=== PATIENT | male | born 1935 | race Caucasian/White ===

== ENCOUNTER 2020-05-08 12:05 | Outpatient (CLI) | payer OTHER, SELFPAY ==
--- NOTE | 2020-05-08 12:13 | USCV_ITS ---
KaydenJaime Age: 84 Gender: M : 1935 Exam Date: 05/08/2020 12:25 Ordering Phys: Shweta Ohara MD Technologist: Mary Dillon Exam Location: [facility] [place] Indication: PAD Risk Factors: Unknown Previous Vascular Surgery: None RIGHT LEFT BP: 150.0 / 81.00 BP: 161.0/ 82.00 0 0 Waveform Velocity (cm/s) Velocity (cm/s) Waveform Triphasic 126.3 Iliac Prox 159.3 Biphasic Triphasic 163.7 Iliac Mid 148.7 Biphasic Triphasic 164.7 Iliac Distal 156.2 Biphasic Triphasic 172.5 REHAB AID 145.5 Monophasic Monophasic 70.9 SFA Prox 63.4 Monophasic Monophasic 22.3 SFA Mid 89.4 Monophasic Monophasic 45.6 SFA Dist 98.6 Monophasic Monophasic 47.7 POP 66.3 Monophasic Monophasic 44.6 SUPERVISOR FILLING AND PACKING 58.6 Monophasic Monophasic 13.6 DPA 35.2 Monophasic DEIDRA 0.8 FINDINGS RT SUPERVISOR FILLING [employer] PACKING 142 RT DPA >220 LT SUPERVISOR FILLING [employer] PACKING 130 LT DPA 100 CONCLUSIONS Supernormal resting DEIDRA on the right side with slightly diminished resting DEIDRA on the left side Abnormal arterial Doppler waveforms, may suggest collateral filling in the infrapopliteal vessels bilaterally Abnormal arterial Doppler waveforms and velocities suggestive of significant disease in the superficial femoral arteries bilaterally. Consider CTA or peripheral angiogram, to better evaluate the arteries, if clinically indicated Dr Marlen Wren MD [facility] (Electronically Signed) Final Date: 08 May 2020 20:21 S
== END 2020-05-08 12:06 | disposition home or self-care (01) ==
LOC: RAD 12:07
PROVIDERS: PCP Internal Medicine; Visit Provider Family Medicine
DX: I73.9 Peripheral vascular disease, unspecified (principal)
CPT/HCPCS: 93925

== ENCOUNTER → 2020-05-26 11:46 | Outpatient (BNVA) | payer OTHER, SELFPAY | PROVIDERS: PCP Internal Medicine; Visit Provider Nurse Practitioner Family | DX: Z20.828 Contact with and (suspected) exposure to other viral communicable diseases (principal) | CPT/HCPCS: 87635 ==

== ENCOUNTER 2021-01-06 11:17 | Emergency (ER) | payer OTHER, SELFPAY ==
[2021-01-06 12:03] VITALS: BP 125/70; PULSE 77; RESP 20; TEMP 36.7; O2SAT 96; BMI 36.6
[2021-01-06 13:31] LABS: Add Urine Microscopic? NO; Charge for UA Resulting for Rev
[2021-01-06 13:35] VITALS: BP 105/66; BP 140/61; BP 151/80; PULSE 71; PULSE 76; PULSE 80
[2021-01-06 13:38] VITALS: BP 140/61; PULSE 80; O2SAT 98
[2021-01-06 13:38] LABS: Bilirubin Urine Neg (Negative); Blood Urine Neg (Negative); Glucose Urine UA Norm (Normal); Ketones Urine Negative (Negative); Leukocyte Esterase Urine Negative (Negative); Nitrate Urine Negative (Negative); Protein Urine Trace (Negative); Specific Gravity, Urine 1.015 (1.005-1.030); Urine Appearance Clear (CLEAR); Urine Color Yellow (Yellow); Urobilinogen Urine Norm (Negative); pH Urine 5 (5-7)
[2021-01-06 13:54] LABS: Basophils % 0.4 %; Eosinophils # 0.1 10^3/uL (0.0-0.8); Eosinophils % 1.5 %; Hematocrit 36.8 % (42.0-52.0); Hemoglobin 12.2 g/dL (11.7-16.6); Lymphocytes # 1.9 10^3/uL (0.8-4.8); Lymphocytes % 19.8 %; Mean Corpuscular HGB Conc 33.2 g/dL (30.0-36.0); Mean Corpuscular Hemoglobin 31.2 pg (28.0-34.0); Mean Corpuscular Volume 94.1 fL (80-94); Mean Platelet Volume 10.6 fL (7.4-10.4); Monocytes # 0.8 10^3/uL (0.2-0.9); Monocytes % 8.8 %; Neutrophils # 6.47 10^3/uL (1.8-7.7); Nucleated Red Blood Cells % 0 %; Platelet Count 324 10^3/cmm (130-400); Red Blood Count 3.91 10^6/uL (4.1-5.3); Red Cell Distribution Width 13.1 % (12.1-15.1); White Blood Count 9.4 10^3/uL (4.0-10.0)
[2021-01-06 14:18] LABS: Alanine Aminotransferase 10 U/L (0-41); Albumin Level 4.1 g/dL (3.5-5.2); Alkaline Phosphatase 75 IU/L (40-130); Aspartate Amino Transferase 13 U/L (0-40); Blood Urea Nitrogen 56 mg/dL (8-23); Carbon Dioxide 27 mmol/L (22-29); Chloride 98 mmol/L (98-107); Globulin 2.6 g/dL (1.3-4.6); Glucose 157 mg/dL (65-115); Osmolality Calculated 303 mOsm/kg (285-295); Sodium 137 mmol/L (136-145); Total Bilirubin 0.3 mg/dL (0.15-1.2); Total Protein 6.7 g/dL (6.6-8.7)
--- NOTE | 2021-01-06 14:30 | W.ED.DIZZY ---
HPI - Dizziness General: Chief Complaint: Dizziness Stated Complaint: abdominal pain, headache, dizzy Time Seen by Provider: 01/06/21 13:06 History of Present Illness: HPI Narrative: 85-year-old male presents emergency room complaining of dizziness headache and some abdominal discomfort. Pain in the head radiates from the base of the neck up into the head. Is caused some dizziness and unsteadiness on his feet it began about 3 to 4 days ago. He is also had nausea and vomiting with mild vision disturbances as well. He does not notice any significant elevation in his blood pressure denies fever sweats chills no chest pain. MD elicited complaint: dizziness, lightheadedness and difficulty walking Onset (ago): day(s) (4-5) Severity: moderate Description: lightheadedness, off-balance and difficulty walking Exacerbating factors: nothing Relieving factors: nothing Associated symptoms: Denies no associated symptoms, change in hearing, chest pain, chills, diaphoresis, ear discharge, ear pressure, fevers/chills, headache(s), malaise, nausea, nasal congestion, palpitations, rash, short of breath, syncope, tinnitus, vomiting or weakness Associated neuro symptoms: Deny no associated symptoms, confusion, difficulty speaking, dysphagia, diplopia, extremity weakness, facial numbness, facial weakness, gait changes, numbness in extremities or visual changes Review of Systems Const: Denies: chills, malaise or diaphoresis ENMT: Denies: ear discharge, change in hearing, tinnitus or nasal congestion Card: Denies: chest pain, palpitations or syncope Resp: Denies: dyspnea, productive cough or non-productive cough GI: Denies: nausea, vomiting or dysphagia : Denies: flank pain, dysuria, urinary frequency or urinary urgency Skin/Breast: Denies: rash or pruritus Neuro: Denies: headache(s), numbness in extremities or confusion Physical Exam Const: COMMON NORMALS: no acute distress GENERAL APPEARANCE: cooperative and comfortable ORIENTATION/CONSCIOUSNESS: Yes awake, Yes oriented to person, Yes oriented to place and Yes oriented to time HENMT: COMMON NORMALS: normocephalic, atraumatic and hearing grossly normal bilaterally HEAD & SCALP: normocephalic and atraumatic Neck/C-Spine: COMMON NORMALS: no JVD Resp: COMMON NORMALS: normal respiratory effort, No retractions, No use of accessory muscles and clear to auscultation bilaterally AUSCULTATION: clear to auscultation bilaterally Cardio: COMMON NORMALS: no JVD, regular rate, regular rhythm and No murmurs present (Cardio) RATE: regular rate RHYTHM: regular rhythm GI: COMMON NORMALS: Soft to palpation and No hepatosplenomegaly present AUSCULTATION: Yes normoactive bowel sounds PALPATION: Yes Soft to palpation, No Tenderness to palpation present (GI), No Guarding due to palpation present (GI) and Yes No hepatosplenomegaly present Extremity: COMMON NORMALS: normal to inspection, capillary refill normal, no clubbing, cyanosis or edema, no calf tenderness and no pedal edema Neuro: SENSORIUM/ORIENTATION: Yes oriented to person, Yes oriented to place and Yes oriented to time Skin: COMMON NORMALS: no rashes or lesions noted GENERAL SKIN EXAM: no rashes or lesions noted Course Vital Signs: Vital signs: Vital Signs Temperature 98.1 F 01/06/21 12:03 Pulse Rate 78 01/06/21 17:53 Respiratory Rate 16 01/06/21 17:53 Blood Pressure 140/61 01/06/21 13:38 Pulse Oximetry 98 01/06/21 17:53 MDM - Dizziness MDM Narrative: Medical decision making narrative: Reviewed labs finding the patient. I think for the most part his symptoms are caused by him being volume depleted he is on spironolactone Lasix and hydrochlorothiazide. We will switch him to plain losartan decrease his Lasix to 40 twice daily and cut his spironolactone in half. Given fluids here he does seem to be feeling somewhat better I did strongly encourage him to follow-up with his doctor within the next week to have his medications and blood pressure reevaluated as well as have a renal function and electrolytes rechecked. Lab Data: Labs: Lab Results 01/06/21 01/06/21 01/06/21 Range/Units 13:22 13:49 13:49 WBC 9.4 (4.0-10.0) 10^3/ uL RBC 3.91 L (4.1-5.3) 10^6/u L Hgb 12.2 (11.7-16.6) g/dL Hct 36.8 L (42.0-52.0) % MCV 94.1 H (80-94) fL MCH 31.2 (28.0-34.0) pg MCHC 33.2 (30.0-36.0) g/dL RDW 13.1 (12.1-15.1) % Plt Count 324 (130-400) 10^3/c mm MPV 10.6 H (7.4-10.4) fL Neut % (Auto) 69.0 % Lymph % (Auto) 19.8 % Duval % (Auto) 8.8 % Eos % (Auto) 1.5 % Baso % (Auto) 0.4 % Neut # (Auto) 6.47 (1.8-7.7) 10^3/u L Lymph # (Auto) 1.9 (0.8-4.8) 10^3/u L Duval # (Auto) 0.8 (0.2-0.9) 10^3/u L Eos # (Auto) 0.1 (0.0-0.8) 10^3/u L Baso # (Auto) 0.0 (0.0-0.1) 10^3/u L Nucleated RBC % (a uto) 0 % Nucleated RBCs # 0.0 /100WBC Sodium 137 (136-145) mmol/L Potassium 5.0 (3.5-5.1) mmol/L Chloride 98 (98-107) mmol/L Carbon Dioxide 27 (22-29) mmol/L Anion Gap 17.0 (5-19) BUN 56 H (8-23) mg/dL Creatinine 2.2 H (0.7-1.2) mg/dL GFR Calculation Not Reportable Glucose 157 H (65-115) mg/dL Calculated Osmolal ity 303 H (285-295) mOsm/k g Calcium 9.0 (8.5-10.5) mg/dL Total Bilirubin 0.3 (0.15-1.2) mg/dL AST 13 (0-40) U/L ALT 10 (0-41) U/L Alkaline Phosphata se 75 (40-130) IU/L Total Protein 6.7 (6.6-8.7) g/dL Albumin 4.1 (3.5-5.2) g/dL Globulin 2.6 (1.3-4.6) g/dL Urine Color Yellow (Yellow) Urine Appearance Clear (CLEAR) Urine pH 5 (5-7) Ur Specific Gravit y 1.015 (1.005-1.030) Urine Protein Trace (Negative) Urine Glucose (UA) Norm (Normal) Urine Ketones Negative (Negative) Urine Blood Neg (Negative) Urine Nitrate Negative (Negative) Urine Bilirubin Neg (Negative) Urine Urobilinogen Norm (Negative) mg/dL Ur Leukocyte Yanira ase Negative (Negative) Discharge Plan Discharge Patient Disposition: Home Clinical Impression: Orthostatic hypotension, Drug side effects, KERRIE (acute kidney injury) Condition: Stable Prescriptions: New losartan 50 mg tablet 50 mg PO DAILY Qty: 30 RF: 0 Continued furosemide 40 mg Tablet See Rx Instructions .ROUTE .COMPLEX RF: 0 Changed spironolactone 25 mg Tablet 12.5 mg PO DAILY Qty: 0 RF: 0 Discontinued losartan-hydrochlorothiazide 50-12.5 mg Tablet 1 tab PO DAILY RF: 0 No Action Lantus U-100 Insulin 100 unit/mL Solution 70 unit SUBCUT DAILY RF: 0 pravastatin 40 mg Tablet 40 mg PO DAILY RF: 0 diltiazem HCl 240 mg Capsule,Extended Release 24hr 240 mg PO DAILY RF: 0 Novolog Mix 70-30 U-100 Insuln 100 unit/mL (70-30) Solution 12 unit SUBCUT BID RF: 0 aspirin 325 mg Tablet 325 mg PO DAILY RF: 0 Discharge Orders: Discharge ED (Routine); Ordered 01/06/21 Ordered By: Jose Ramon Hopkins Referrals: Dann Green [Primary Care Provider] - Discharge Diet: Usual diet Discharge Activity: Increase activity as tolerated Patient Instructions: Opioid Safety Coding Level of Care Code ED Marketing Effectiveness Manager for Susi Fwd Exam Comprehensive
--- NOTE | 2021-01-06 14:35 | CT_ITS ---
WS: [id number] CT HEAD NONCONTRAST HISTORY: headache TECHNIQUE: Contiguous axial imaging performed through the brain in 2.5 mm imaging. Bone and soft tiss ue windows. Sagittal and coronal reformats reviewed. All CT scans at [facility] use at ast one of these dose optimization techniques: automated exposure control; mA and/or kV adjustment pe r patient size (includes targeted exams where dose is matched to clinical indication); or iterative r econstruction. DLP: 970.61 mGy.cm COMPARISON: 04/13/2011 No acute intracranial hemorrhage, midline shift or mass effect. Moderate to severe and chronic ischemic changes. There is been a moderate progression of disease sinc e the prior examination. No acute area of sulcal effacement. Mild atrophy. Ventricles: Ventricles are mildly prominent on the basis of atrophy. No inferior displacement of cerebellar tonsils. Paranasal sinuses: As visualized are clear. Mastoid air cells: Well pneumatized. Calvarium and scalp: Skull is intact with no soft tissue edema or swelling. Dense calcified plaque in the distal LEFT vertebral artery and through the intracranial carotid arter ies. CT/CT head wo con* [id number] IMPRESSION: 1. No acute intracranial hemorrhage or edema. 2. Moderate progression of atrophy and chronic microvascular ischemic disease since 2010.
--- NOTE | 2021-01-06 14:35 | CT_ITS ---
WS: [id number] CT ABDOMEN AND PELVIS NONCONTRAST HISTORY: Abdominal pain for several days. TECHNIQUE: Imaging performed through the abdomen and pelvis. Coronal and sagittal reformats are submi tted. All CT scans at [facility] use at least one of these dose optimization techniques: automated exposure control; mA and/or kV adjustment per patient size (includes targeted exams where d ose is matched to clinical indication); or iterative reconstruction. DLP: 1582.24 mGy.cm COMPARISON: None available. Lower thorax: Lung bases are clear. Visualized heart is normal. Small hiatal hernia. Liver: Hepatic steatosis. No bile duct dilatation. Gallbladder: Normally distended gallbladder. Layering stones within the gallbladder lumen. No adjacen t inflammation or bile duct dilatation. Pancreas: Mild atrophy. Spleen: Normal. Adrenal glands: Normal. No mass. Right kidney: No obstruction. Mild perinephric stranding. Very slight lobulation to the renal cortex measuring 7 mm. Cannot exclude mass. Left kidney: Normal size kidney. Lobulated low-attenuation mass from the superior pole measures 2.0 c m. Indeterminate for cyst. Aorta: Moderate to severe atherosclerosis abdominal aorta. No aneurysm. Atherosclerosis continues int o the common iliac arteries. No free fluid, intraperitoneal air or significant lymphadenopathy. GI tract: Normal appendix. No GI tract obstruction. Numerous diverticula in the descending and sigmoi d colon. No acute inflammatory process. Abdominal wall: Small umbilical hernia contains fat only. Pelvis: Well-distended urinary bladder. Prostate gland is mildly enlarged. No free fluid or adenopath y. Osseous structures: Unremarkable. CT/CT abdomen pelvis wo con [id number] IMPRESSION: 1. Cholelithiasis without evidence for acute cholecystitis. 2. Normal appendix. 3. Numerous descending and sigmoid diverticula without acute diverticulitis. 4. Hiatal hernia. 5. Moderate atherosclerosis aorta and common iliac arteries.
[2021-01-06] MEDS: sodium chloride 0.9% 1,000 ML 999 ML IV (17:31)
[2021-01-06 17:53] VITALS: PULSE 78; RESP 16; O2SAT 98
== END 2021-01-06 17:57 | disposition home or self-care (01) ==
PROVIDERS: Emergency Provider Family Medicine; PCP Internal Medicine
DX: I95.2 Hypotension due to drugs (principal); N17.9 Acute kidney failure, unspecified; T50.0X5A Adverse effect of mineralocorticoids and their antagonists, initial encounter; T50.1X5A Adverse effect of loop [high-ceiling] diuretics, initial encounter; T50.2X5A Adverse effect of carbonic-anhydrase inhibitors, benzothiadiazides and other diuretics, initial encounter
CPT/HCPCS: 70450; 74176; 80053; 81003; 85025; 96360; 99284; J7030

== ENCOUNTER 2021-07-13 07:16 | Outpatient (CLI) | payer OTHER, SELFPAY ==
[2021-07-13 07:52] VITALS: BMI 36.6
--- NOTE | 2021-07-13 07:52 | ECG_ITS ---
[facility] Test Date: 2021-07-13 Pat Name: Jaime Monique Department: Room: Gender: Male Computer Service Technician: Violeta Kennedy : 1935 Requested By: Peter Daniel Order Number: [id number] Catalino MD: Kat Prince M.D. Interpretive Statements NAME OF STUDY: LEXISCAN SESTAMIBI STRESS TEST INDICATION: Dyspnea PROCEDURE: At the baseline, the blood pressure was 160/65 mmHg, oxygen saturation 96% with a heart rate of 90 bpm. The electrocardiogram showed normal sinus rhythm, normal axis with nonspecific ST depression. The Lexiscan was infused over a period of 20 seconds. A total of 0.4 milligrams of Lexiscan was infused. The stress phase was continued for a total of 5 minutes. Heart rate at the end of the stress phase was 112 bpm, oxygen saturation 98% with a blood pressure of 180/67 mmHg. The EKG at the peak infusion revealed sinus tachycardia [address] depression in anterolateral leads. The study was terminated to protocol completion. Sestamibi was injected 20 seconds after the Lexiscan infusion. Blood pressure at the end of the recovery phase was 176/63 mmHg, oxygen saturation 97% with a heart rate of 101 beats per minute. CONCLUSION: 1. Positive EKG response to LexiScan infusion. [address] depression in anterolateral leads. 2. No LexiScan induced chest pain or cardiac arrhythmia. 3. Normal blood pressure and heart rate response. 4. Sestamibi/sestamibi perfusion scan pending; see separate report. Electronically Signed On 07-14-2021 17:59:10 TRAIN MASTER by Kat Prince M.D. [email or web address]
--- NOTE | 2021-07-13 07:53 | NMCV_ITS ---
NM semaj perf SPECT r/s* [id number] Jaime Monique Age: 86 Gender: M : 1935 Exam Date: 07/13/2021 07:53 Ordering Phys: Peter Daniel M.D ([email or web address]) Technologist: ALEA Babb Exam Location: [facility] Indications: DYSPNEA STRESS TEST Please see separate stress test report in [facility] for full findings IMAGE PROTOCOL Rest/Stress 1 Lexiscan Day Radiopharmaceutical Dose (mCi) Administration Site Administered by Rest: Tc-99m 11.0 IV ALEA Babb Sestamibi Stress:Tc-99m 33.0 IV ALEA Reveles Sestamibi Rest: 13-Jul-2021 60 Discovery 630 Stress: 13-Jul-2021 30 Discovery 630 0.4mg Lexiscan. Supine position only as patient was unable to lay prone. SPECT RESULTS Technical Quality: Excellent Raw Data Analysis: Normal Image Corrections: No attenuation or motion correction applied Summed Stress Score: 5 Summed Rest Score: 0 Summed Difference Score: 5 PERFUSION FINDINGS Small size perfusion abnormality of mild severity of mid to apical lateral and apical inferior rubio on stress images. FUNCTIONAL RESULTS (calculated via Gated SPECT) Stress Image LV EF (%): 65 Stress EDV (mL):94 TID: 0.91 Stress ESV (mL):33 FUNCTIONAL FINDINGS: The left ventricle is normal in size. Transient Ischemia Dilatation of 0.91. There is normal left ventricular systolic function. The left ventricular ejection fraction is normal with a value of 65%. There is normal left ventricular wall thickening. Normal end-diastolic end-systolic volumes. IMPRESSIONS 1. Small sized reversible perfusion abnormality of mild severity of mid to apical lateral and apical inferior rubio. 2. This may represent small area of ischemia in circumflex artery territory. 3. Overall left ventricular systolic function is normal without regional wall motion abnormalities. 4. The left ventricular ejection fraction is normal with a value of 65%. 5. Positive EKG changes with Lexiscan infusion. Please refer to separate report for details. Kat Prince MD (Electronically Signed) Final Date: 14 July 2021 18:07 S
[2021-07-13] MEDS: regadenoson 0.4 Mg/5 ml Syringe IVP (09:59)
[2021-07-13 10:14] VITALS: BP 176/63; PULSE 99
--- NOTE | 2021-07-13 10:15 | USCV_ITS ---
[facility] 86 Gender: M : 1935 Exam Date: 07/13/2021 08:04 Ordering Phys: Peter Daniel M.D ([email or web address]) Technologist: FAINA Exam Location: [facility] [place] Indication: CHRONIC dyspnea BP: / HR: 83 Rhythm: Sinus Technical Quality: Adequate MEASUREMENTS (Male / Female) Normal Values 2D ECHO LV Diastolic Diameter PLAX 4.3 cm 4.2 - 5.9 / 3.9 - 5.3 cm LV Systolic Diameter PLAX 2.7 cm IVS Diastolic Thickness 1.7 cm 0.6 - 1.0 / 0.6 - 0.9 cm IVS Systolic Thickness 2.1 cm LVPW Diastolic Thickness 1.4 cm 0.6 - 1.0 / 0.6 - 0.9 cm LVPW Systolic Thickness 2.2 cm LVOT Diameter 2.2 cm LV Ejection Fraction 2D Teich 67.6 % LV Ejection Fraction MOD 2C 64.2 % LV Ejection Fraction 2C AL 63.4 % LA Diameter 4.4 cm LA Width 5.2 cm LA Height 5.5 cm RA Width 4.4 cm RA Height 3.5 cm Aorta at Sinotubular Diameter 3.0 cm M-MODE Aortic Annulus Diameter 3.1 cm LA Ao Ratio MM 1.5 MV E Point Septal Separation 0.3 cm DOPPLER AV Peak Velocity 110.0 cm/s LVOT Peak Velocity 86.0 cm/s AV Area Cont Eq vti 2.7 cm squared AV Area Cont Eq pk 2.9 cm squared MV Area PHT 4.2 cm squared Mitral E to A Ratio 0.8 MV E' Velocity 65.0 cm/s Mitral E to MV E' Ratio 12.8 Mitral E to LV E' Lateral Ratio 12.4 Mitral E to LV E' Septal Ratio 13.2 TR Peak Velocity 268.0 cm/s TR Peak Gradient 28.7 mmHg TV Peak E Velocity 52.0 cm/s Right Atrial Pressure 10.0 mmHg Pulmonary Artery Systolic Pressu 38.7 mmHg PV Peak Velocity 139.0 cm/s RV Acceleration Time 0.1 s RV Ejection Time 0.4 s RV AcT/ET 0.3 FINDINGS Left Ventricle Normal left ventricular cavity size. Mildly increased left ventricular wall thickness. Mild concentric left ventricular hypertrophy. Normal left ventricular systolic function. Left ventricular ejection fraction is estimated at 55 %. No diagnostic regional wall motion abnormalities. Normal diastolic function. Right Ventricle Normal right ventricular size and systolic function. Right ventricular systolic pressure 39 mmHg. Right Atrium Normal right atrial size. Left Atrium Moderately increased left atrial size. Mitral Valve Mild mitral annular calcification. Moderately thickened mitral valve. No mitral valve stenosis. Trace mitral valve regurgitation. Aortic Valve Mildly thickened trileaflet aortic valve. No aortic valve stenosis. No aortic valve regurgitation. Tricuspid Valve Structurally normal tricuspid valve. No tricuspid valve stenosis. Mild tricuspid valve regurgitation. Pulmonic Valve Structurally normal pulmonic valve. No pulmonary valve stenosis. No pulmonary valve regurgitation. Pericardium No pericardial effusion. Aorta Normal size aortic root and proximal ascending aorta. Normal- sized inferior vena cava. CONCLUSIONS 1. Normal left ventricle size and systolic function. Mild concentric left ventricular hypertrophy. Left ventricular ejection fraction is estimated at 55 %. No diagnostic regional wall motion abnormalities. Normal diastolic function. 2. Normal right ventricular size and systolic function. 3. Mild pulmonary hypertension with pulmonary pressure estimated at 39 mmHg. 4. Mild tricuspid valve regurgitation. 5. Direct comparison to previous study dated 24 September 2015 is not possible, given technically difficult study. Kat Prince MD (Electronically Signed) Final Date: 14 July 2021 17:18 S
== END 2021-07-13 07:17 | disposition home or self-care (01) ==
LOC: CDL 07:18
PROVIDERS: PCP Family Medicine; Visit Provider Internal Medicine
DX: R06.09 Other forms of dyspnea (principal); I27.20 Pulmonary hypertension, unspecified; I07.1 Rheumatic tricuspid insufficiency
CPT/HCPCS: 78452; 93017; 93306; A9500; J2785

== ENCOUNTER 2021-09-30 08:04 | Outpatient (CLI) | payer OTHER, SELFPAY ==
--- NOTE | 2021-09-30 08:27 | CT_ITS ---
WS: [id number] CT ABDOMEN PELVIS TECHNIQUE: Contrast-enhanced CT of the abdomen and pelvis with coronal and sagittal reformatted image s. CLINICAL INFORMATION: ABDOMINAL PAIN COMPARISON: CT January 06, 2021 DLP: 1292.[address] scans at [facility] use at least one of these dose optimization techniques: automated e xposure control; mA and/or kV adjustment per patient size (includes targeted exams where dose is matc hed to clinical indication); or iterative reconstruction. FINDINGS: Diffuse fatty infiltration of the liver. Mild hepatomegaly. Dense cholelithiasis unchanged from previ ous. Normal portal vein and splenic vein. Normal spleen. Fatty atrophy of the pancreas. Small esophag eal hiatal hernia. Lung bases are well aerated. Adrenal glands are normal. Normal renal parenchymal e nhancement. No hydronephrosis. Bilateral renal cysts. 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 Both ureters are decompressed. Moderate aortic atheromatous disease. Enhancing enlarged prostate measuring 5.3 x 5.9 cm appears prog ressed compared to previous. Fat-containing umbilical hernia. Sigmoid diverticulosis. No evidence of acute diverticulitis. Normal appendix in the RIGHT lower quadrant. Lung bases are well aerated. CT/CT abdomen pelvis w con* [id number] IMPRESSION: 1. Heterogeneous enhancing enlarged prostate has progressed compared to December 191930. Recommend correlation with PSA. Findings suspicious for neoplasia/hype rplasia. 2. Sigmoid diverticulosis. No evidence of acute diverticulitis. 3. Normal appendix in the RIGHT lower quadrant. 4. Dense cholelithiasis. 5. Small esophageal hiatal hernia. 6. Mild hepatomegaly diffuse fatty infiltration of the liver. 7. Bilateral renal cysts.
[2021-09-30] MEDS: iohexol 300 mg/mL 50 mL Btl PO (08:43)
[2021-09-30] MEDS: iodixanol 320 mg/mL 100mL Btl IV (09:45)
[2021-09-30 09:53] LABS: Blood Urea Nitrogen 38 mg/dL (8-23)
== END 2021-09-30 08:05 | disposition home or self-care (01) ==
LOC: RAD 08:05
PROVIDERS: PCP Family Medicine; Visit Provider Family Medicine
DX: N40.0 Benign prostatic hyperplasia without lower urinary tract symptoms (principal); K57.30 Diverticulosis of large intestine without perforation or abscess without bleeding; K80.20 Calculus of gallbladder without cholecystitis without obstruction; K44.9 Diaphragmatic hernia without obstruction or gangrene; K76.0 Fatty (change of) liver, not elsewhere classified; R16.0 Hepatomegaly, not elsewhere classified; Q61.02 Congenital multiple renal cysts
CPT/HCPCS: 74177; 82565; 84520

== ENCOUNTER → 2021-10-09 10:33 | Outpatient (BNVA) | payer OTHER, SELFPAY | PROVIDERS: PCP Family Medicine; Visit Provider Otolaryngology | DX: H61.22 Impacted cerumen, left ear (principal); H90.3 Sensorineural hearing loss, bilateral; Z87.891 Personal history of nicotine dependence | CPT/HCPCS: 69210; 99203 ==

== ENCOUNTER 2021-12-01 11:16 | Outpatient (CLI) | payer OTHER, SELFPAY | END 2021-12-01 11:17 | disposition home or self-care (01) | LOC: LAB 11:18 | PROVIDERS: PCP Family Medicine; Visit Provider Urology | DX: R97.20 Elevated prostate specific antigen [PSA] (principal) | CPT/HCPCS: 84153 ==

== ENCOUNTER → 2021-12-04 10:18 | Outpatient (BNVA) | payer OTHER, SELFPAY | PROVIDERS: PCP Family Medicine; Visit Provider Urology | DX: R97.20 Elevated prostate specific antigen [PSA] (principal) | CPT/HCPCS: 51798; 81003; 99203 ==

== ENCOUNTER 2021-12-16 06:56 | Outpatient (CLI) | payer OTHER, SELFPAY ==
--- NOTE | 2021-12-16 07:15 | US_ITS ---
WS: [id number] RENAL ULTRASOUND HISTORY: STAGE 3B CHRONIC KIDNEY DZ COMPARISON: 09/30/2021 CT. TECHNIQUE: 2-D and color Doppler imaging of the kidney submitted. Right kidney: 10.3 cm x 5.3 cm x 5.8 cm. Normal echogenicity with no hydronephrosis or mass. Cortical cyst RIGHT kidney measures 1.5 x 1.4 x 1 .2 cm. Left kidney: 11.7 cm x 4.9 cm x 5.5 cm. Normal size kidney. Cortical cyst upper pole measures 2.5 x 2.1 x 2.4 cm. No hydronephrosis or solid mass. Normal cortex. Aorta: Not imaged. Urinary Bladder: Normally distended. Enlarged heterogeneous prostate gland. Prostate measures 6.3 x 5 .4 x 5.3 cm. Central calcification. US/US renal BI* [id number] IMPRESSION: 1. No hydronephrosis. 2. Bilateral renal cysts. 3. Marked prostate gland enlargement and heterogeneity.
== END 2021-12-16 06:57 | disposition home or self-care (01) ==
LOC: RAD 06:57
PROVIDERS: PCP Family Medicine; Visit Provider Internal Medicine Nephrology
DX: N18.32 Chronic kidney disease, stage 3b (principal)
CPT/HCPCS: 76770

== ENCOUNTER → 2022-03-09 10:20 | Outpatient (BNVA) | payer OTHER, SELFPAY | PROVIDERS: PCP Family Medicine; Visit Provider Urology | DX: R97.20 Elevated prostate specific antigen [PSA] (principal) | CPT/HCPCS: 99213 ==

== ENCOUNTER → 2022-04-27 10:56 | Outpatient (BNVA) | payer OTHER, SELFPAY | PROVIDERS: PCP Family Medicine; Referring Provider Family Medicine; Visit Provider Podiatrist Foot & Ankle Surgery | DX: E11.8 Type 2 diabetes mellitus with unspecified complications (principal); E11.42 Type 2 diabetes mellitus with diabetic polyneuropathy; I73.9 Peripheral vascular disease, unspecified; M21.40 Flat foot [pes planus] (acquired), unspecified foot; L60.3 Nail dystrophy; L84 Corns and callosities; Z79.84 Long term (current) use of oral hypoglycemic drugs | CPT/HCPCS: 11056; 11721; 99204 ==

== ENCOUNTER 2022-10-19 14:57 | Outpatient (CLI) | payer OTHER, SELFPAY ==
--- NOTE | 2022-10-19 | USCV_ITS ---
Jaime Monique Age: 87 Gender: M : 1935 Exam Date: 10/19/2022 15:34 Ordering Phys: Shweta Ohara MD Technologist: Himanshu Muñoz Exam Location: [facility] [place] Indication: pad skin changes Risk Factors: Previous Vascular Surgery: RIGHT LEFT BP: 130.0 / 80.00 BP: 130.0/ 80.00 0 0 Waveform Velocity (cm/s) Velocity (cm/s) Waveform Biphasic 213.1 Iliac Prox 145.9 Monophasic Biphasic 162.9 Iliac Mid 155.1 Monophasic Biphasic Iliac Distal Monophasic 142.8 107.8 Biphasic 48.6 ELEMENTARY LIBRARIAN 81.5 Monophasic Biphasic 42.1 SFA Prox 72.3 Monophasic Monophasic 36.8 SFA Mid 156.4 Monophasic Monophasic 47.3 SFA Dist 72.3 Monophasic Monophasic 84.1 POP 68.4 Monophasic Monophasic 46.0 TANK CALIBRATOR 57.8 Monophasic Monophasic 48.0 DPA 64.4 Monophasic 0.5 DEIDRA 0.5 FINDINGS Moderate to heavy plaques in the iliac and femoral arteries on the right side. Monophasic and continuous waveforms in the right posterior tibial artery. Resting DEIDRA of 0.5 on the right side. Moderately heavy diffuse plaque in the femoral artery on the left side. Monophasic and continuous waveforms in the posterior tibial and dorsalis pedis arteries of the left side. Resting DEIDRA on the left side 0.5 CONCLUSIONS 1. Abnormal resting ABIs bilaterally suggesting moderately severe peripheral arterial disease, possibly multisegmental. 2. Abnormal Doppler waveforms suggesting collateral filling in the infrapopliteal vessels on the left side and posterior tibial artery on the right side Compared to the study from 05/08/2020, there seems to be a significant worsening of the peripheral artery disease bilaterally. Dr Marlen Wren MD [facility] (Electronically Signed) Final Date: 21 Oct 2022 07:30 S
== END 2022-10-19 14:58 | disposition home or self-care (01) ==
LOC: RAD 15:02
PROVIDERS: PCP Family Medicine; Visit Provider Family Medicine
DX: I73.9 Peripheral vascular disease, unspecified (principal)
CPT/HCPCS: 93925

== ENCOUNTER → 2023-05-04 13:39 | Outpatient (BNVA) | payer OTHER, SELFPAY | PROVIDERS: PCP Family Medicine; Referring Provider Family Medicine; Visit Provider Nurse Practitioner Family | DX: Z85.828 Personal history of other malignant neoplasm of skin (principal); I87.2 Venous insufficiency (chronic) (peripheral); L57.0 Actinic keratosis; L81.4 Other melanin hyperpigmentation; D22.4 Melanocytic nevi of scalp and neck | CPT/HCPCS: 17004; 99204 ==

== ENCOUNTER → 2023-06-03 09:49 | Outpatient (BNVA) | payer OTHER, SELFPAY | PROVIDERS: PCP Family Medicine; Visit Provider Nurse Practitioner Family | DX: Z85.828 Personal history of other malignant neoplasm of skin (principal); I87.2 Venous insufficiency (chronic) (peripheral); L57.8 Other skin changes due to chronic exposure to nonionizing radiation; L81.4 Other melanin hyperpigmentation; D22.4 Melanocytic nevi of scalp and neck | CPT/HCPCS: 99213 ==

== ENCOUNTER → 2023-09-27 09:24 | Outpatient (BNVA) | payer OTHER, SELFPAY | PROVIDERS: PCP Family Medicine; Referring Provider Family Medicine; Visit Provider Internal Medicine | DX: E11.9 Type 2 diabetes mellitus without complications (principal); I50.9 Heart failure, unspecified; Z79.4 Long term (current) use of insulin | CPT/HCPCS: 99204 ==

== ENCOUNTER 2024-03-27 13:50 | Outpatient (CLI) | payer OTHER, SELFPAY ==
--- NOTE | 2024-03-27 13:59 | USCV_ITS ---
Jaime Monique Age: 88 Gender: M : 1935 Exam Date: 03/27/2024 13:51 Ordering Phys: Violeta Enriquez DATA INTEGRATION DEVELOPER DATA INTEGRATION DEVELOPER Technologist: Exam Location: [facility] Indication: PAD RIGHT LEFT Brachial 158.00 mmHg Brachial 154.00 mmHg Pressure (mmHg) Waveform Pressure (mmHg) Waveform 94.00 QA LEAD 102.00 100.00 DPA 87.00 0.63 Ankle/Brachial Index 0.65 106.00 Pre-Exercise Toe Pressure 67.00 0.67 Pre-Exercise Toe/Brachial Index 0.42 FINDINGS Resting DEIDRA of 0.63 on the right and 0.65 on the left Resting TBI of 0.67 on the right and 0.42 on the left CONCLUSIONS Abnormal resting ABIs and TBIs bilaterally suggesting moderate peripheral artery disease Compared to the study from 05/08/2020, there is significant worsening of the peripheral arterial disease Dr Marlen Wren MD [facility] (Electronically Signed) Final Date: 27 March 2024 21:36 S
== END 2024-03-27 13:51 | disposition home or self-care (01) ==
LOC: RAD 13:52
PROVIDERS: PCP Family Medicine; Visit Provider Nurse Practitioner Family
DX: I73.9 Peripheral vascular disease, unspecified (principal)
CPT/HCPCS: 93922

== ENCOUNTER 2024-04-25 10:18 | Outpatient (CLI) | payer OTHER, SELFPAY ==
[2024-04-25 11:38] LABS: Basophils % 0.3 %; Eosinophils # 0.2 10^3/uL (0.0-0.8); Eosinophils % 3.1 %; Hematocrit 40.4 % (37-53); Lymphocytes # 1.1 10^3/uL (0.8-4.8); Lymphocytes % 19.3 %; Mean Corpuscular HGB Conc 32.7 g/dL (30-55); Mean Corpuscular Hemoglobin 30.1 pg (27-33); Mean Platelet Volume 11.1 fL (7.4-10.4); Monocytes # 0.5 10^3/uL (0.2-0.9); Monocytes % 9.4 %; Neutrophils # 3.85 10^3/uL (1.8-7.7); Nucleated Red Blood Cells % 0 %; Platelet Count 255 10^3/cmm (157-399); Red Blood Count 4.39 10^6/uL (3.85-5.65); Red Cell Distribution Width 12.8 % (12.1-15.1); White Blood Count 5.75 10^3/uL (3.29-11.43)
[2024-04-25 12:03] LABS: Albumin Level 3.8 g/dL (3.5-5.2); Blood Urea Nitrogen 49 mg/dL (8-23); Carbon Dioxide 29 mmol/L (22-29); Chloride 102 mmol/L (98-107); Glucose 296 mg/dL (65-115); Phosphorus 3.8 mg/dL (2.5-4.5); Sodium 140 mmol/L (136-145)
[2024-04-25 12:04] LABS: Parathyroid Hormone 57.5 pg/mL (15-65)
[2024-04-25 12:13] LABS: 25 Hydroxy Vitamin D 13 ng/mL (30-100)
[2024-04-25 12:21] LABS: Creatinine Urine, Random 61 mg/dL (39-259)
[2024-04-25 12:22] LABS: Anion Gap 13.5 (5-19); Potassium 4.5 mmol/L (3.5-5.1)
[2024-04-25 12:33] LABS: Microalbum Creatinine Ratio Ur 3230 mg/dL (0-20); Microalbumin Random Urine 197 ug/dL (0-20)
== END 2024-04-25 10:19 | disposition home or self-care (01) ==
LOC: LAB 10:40
PROVIDERS: PCP Family Medicine; Visit Provider Internal Medicine Nephrology
DX: N18.32 Chronic kidney disease, stage 3b (principal); E55.9 Vitamin D deficiency, unspecified
CPT/HCPCS: 36415; 80069; 82044; 82306; 82310; 83970; 85025

== ENCOUNTER → 2024-05-02 14:10 | Outpatient (BNVA) | payer OTHER, SELFPAY | PROVIDERS: PCP Family Medicine; Visit Provider Nurse Practitioner | DX: M25.561 Pain in right knee (principal); M17.11 Unilateral primary osteoarthritis, right knee | CPT/HCPCS: 20610; 73560; 73565; 99204; J1100; J2795; J3301 ==

== ENCOUNTER 2024-05-02 15:51 | Outpatient (CLI) | payer OTHER, SELFPAY | END 2024-05-02 15:52 | disposition home or self-care (01) | LOC: SPT 15:51 | PROVIDERS: PCP Family Medicine; Visit Provider Nurse Practitioner | DX: Z46.89 Encounter for fitting and adjustment of other specified devices (principal); M25.561 Pain in right knee | CPT/HCPCS: L1851 ==

== ENCOUNTER 2024-07-25 15:59 | Emergency (ER) | payer OTHER, MEDICARE, SELFPAY ==
[2024-07-25 16:06] VITALS: BP 158/79; PULSE 89; RESP 17; TEMP 36.6; O2SAT 97; BMI 32.5
--- NOTE | 2024-07-25 16:12 | ECG_ITS ---
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 Measurements Intervals [place] Rate: 83 P: 69 WV: 170 QRS: 32 QRSD: 97 T: 70 QT: 380 QTc: 448 Interpretive Statements SINUS RHYTHM No previous ECG available for comparison Electronically Signed On 07-26-2024 21:56:00 HANDLE ROUNDER OPERATOR by Peter Daniel M.D. [email or web address]
--- NOTE | 2024-07-25 16:19 | CTR_ITS ---
PROCEDURE INFORMATION: Exam: CT Head Without Contrast Exam date and time: 07/25/2024 4:25 PM Age: 89 years old Clinical indication: Stroke-like symptoms; Generalized weakness; Additional info: Possible stroke TECHNIQUE: Imaging protocol: Computed tomography of the head without contrast. Radiation optimization: All CT scans at this facility use at least one of these dose optimization techniques: automated exposure control; mA and/or kV adjustment per patient size (includes targeted exams where dose is matched to clinical indication); or iterative reconstruction. Other technique: STROKE PROTOCOL was implemented. COMPARISON: CT head wo con* [id number] 01/06/2021 3:58 PM RADIATION DOSE METRICS: Total DLP (mGy-cm): 1228.99 FINDINGS: Brain: There is diffuse cerebral atrophy and chronic microvascular white matter disease. There is no significant mass effect or midline shift. There is no acute intracranial hemorrhage. Cerebral ventricles: There is mild ex vacuo dilation of the lateral ventricles. The basal cisterns are unremarkable. Paranasal sinuses: The paranasal sinuses are clear. Mastoid air cells: The mastoid air cells are clear. Bones: The calvarium is intact. Soft tissues: The visible extracranial soft tissues are unremarkable. CT/CT head thrombolytic [id number] IMPRESSION: No acute intracranial abnormality. ASSESSMENT: ASPECTS ([place] Stroke Program Early CT Score) is 10.
--- NOTE | 2024-07-25 16:23 | XRR_ITS ---
PROCEDURE INFORMATION: Exam: XR Chest Exam date and time: 07/25/2024 4:48 PM Age: 89 years old Clinical indication: Other: Stroke like symptoms; Additional info: Weakness TECHNIQUE: Imaging protocol: Radiologic exam of the chest. Views: 1 view. COMPARISON: CT abdomen pelvis w con* [id number] 09/30/2021 9:27 AM FINDINGS: Lungs: Lungs are clear. Pleural spaces: There is no pleural effusion or pneumothorax. Heart/Mediastinum: Cardiomediastinal contours are unremarkable. Bones/joints: Bones are unremarkable. XR/XR chest 1V portable [id number] IMPRESSION: No acute findings.
--- NOTE | 2024-07-25 16:40 | W.ED.NEUROSD ---
HPI - Neuro Symptoms/Deficit General: Chief Complaint: Neuro Symptoms/Deficit Stated Complaint: stroke like symptoms Time Seen by Provider: 07/25/24 16:18 History of Present Illness: 89-year-old man with a history ofObesity, hypertension, hyperlipidemia and diabetes who presents the emergency room with strokelike symptoms. He says he woke up this morning feeling off. Slightly off balance. Then about 3 to 4 hours ago he developed left-sided weakness. Slurred speech. He had called family and they noted that his speech was very slurred at the time. This has resolved since. On my exam he has some slight drift in his left arm with perhaps a slight decrease in his flume worker strength on the left side compared to the right. He also has some weakness in his left leg with drift and he ends up hitting the bed on my exam. No facial droop. No slurred speech. No altered mental status. Related Data Home Medications ?Medication ?Instructions ?Recorded ?Confirmed diltiazem HCl 240 mg 240 mg PO DAILY 01/06/21 05/02/24 capsule,extended release 24 hr furosemide 40 mg tablet See Rx Instructions .Route .COMPLEX 01/06/21 05/02/24 insulin aspar prt-insulin aspart 12 unit SUBCUT BID 01/06/21 05/02/24 100 unit/mL (70-30) subcutaneous soln (Novolog Mix 70-30 U-100 Insuln) alogliptin 12.5 mg tablet 12.5 mg PO DAILY 12/04/21 05/02/24 cholecalciferol (vitamin D3) 50 50 mcg PO DAILY 12/04/21 05/02/24 mcg (2,000 unit) capsule insulin glargine 100 unit/mL 50 unit SUBCUT DAILY 12/04/21 05/02/24 subcutaneous solution (Lantus U-100 Insulin) tamsulosin 0.4 mg capsule 0.8 mg PO DAILY 12/04/21 05/02/24 spironolactone 25 mg tablet 12.5 mg PO DAILY 11/03/22 05/02/24 Previous Rx's ?Medication ?Instructions ?Recorded 3 Pairs of Compression Socks #1 ea 04/27/22 Medial lug breaker and wire puller brace #1 ea 05/02/24 aspirin 325 mg capsule 325 mg PO DAILY #30 caps 07/25/24 atorvastatin 20 mg tablet (Lipitor) 20 mg PO DAILY #30 tabs 07/25/24 Allergies Allergy/AdvReac Type Severity Reaction Status Date / Time No Known Allergies Allergy Verified 07/25/24 16:11 Review of Systems Narrative: Constitutional symptoms: Negative except as documented in HPI. Skin symptoms: Negative except as documented in HPI. Eye symptoms: Negative except as documented in HPI. ENMT symptoms: Negative except as documented in HPI. Respiratory symptoms: Negative except as documented in HPI. Cardiovascular symptoms: Negative except as documented in HPI. Gastrointestinal symptoms: Negative except as documented in HPI. Genitourinary symptoms: Negative except as documented in HPI. Musculoskeletal symptoms: Negative except as documented in HPI. Neurologic symptoms: Negative except as documented in HPI. Psychiatric symptoms: Negative except as documented in HPI. Endocrine symptoms: Negative except as documented in HPI. PFSH ED PFSH: Medical History Elevated PSA Hyperlipidemia Hypertension Diabetes Family History Father Tuberculosis Mother , AT AGE 90 Renal failure Other Hypertension Social History Smoking and tobacco/nicotine status: unknown if used tobacco/nicotine Alcohol intake: never Marital status: / Current occupational status: retired Physical Exam Narrative: EXAM NARRATIVE: General: Alert, no acute distress. Skin: Warm, dry. Head: Normocephalic, atraumatic. Neck: Supple, trachea midline. Eye: Extraocular movements are intact. Ears, nose, mouth and throat: mucosa moist. Cardiovascular: Regular, Normal peripheral perfusion. Respiratory: Lungs are clear to auscultation, respirations are non-labored, breath sounds are equal, Symmetrical chest wall expansion. Gastrointestinal: Soft, Nontender, Non distended Musculoskeletal: Normal ROM, no deformity. Neurological: Alert and oriented, On my exam he has some slight drift in his left arm with perhaps a slight decrease in his flume worker strength on the left side compared to the right. He also has some weakness in his left leg with drift and he ends up hitting the bed on my exam. No facial droop. No slurred speech. No altered mental status. No visual field deficits. Psychiatric: Cooperative, appropriate mood & affect. Course Vital Signs: Vital signs: Vital Signs Temperature 97.8 F 07/25/24 16:06 Pulse Rate 89 07/25/24 16:06 Respiratory Rate 17 07/25/24 16:06 Blood Pressure 158/79 07/25/24 16:06 Pulse Oximetry 97 07/25/24 16:06 Oxygen Delivery Me thod Room Air 07/25/24 16:06 MDM - Neuro Symptoms/Deficit Medical Decision Making Medical decision making: Differential diagnosis for patient with focal neurologic deficit(s) includes but not limited to and based on the above HPI, review of systems and physical exam: ischemic stroke, hemorrhagic stroke and embolic stroke secondary to atrial fibrillation), TIA, Hussein's palsey, metabolic encephalopathy with previous stroke. Orders placed to evaluate differential diagnosis based on the above differential, HPI and physical exam NIH Stroke Scale/Score (NIHSS) from [employer] on 07/25/2024 All calculations should be rechecked by clinician prior to use RESULT SUMMARY: 3 points NIH Stroke Scale INPUTS: 1A: Level of consciousness ?> 0 = Alert; keenly responsive 1B: Ask month and age ?> 0 = Both questions right 1C: 'Blink eyes' & 'squeeze hands' ?> 0 = Performs both tasks 2: Horizontal extraocular movements ?> 0 = Normal 3: Visual weiner ?> 0 = No visual loss 4: Facial palsy ?> 0 = Normal symmetry 5A: Left arm motor drift ?> 1 = Drift, but doesn't hit bed 5B: Right arm motor drift ?> 0 = No drift for 10 seconds 6A: Left leg motor drift ?> 2 = Drift, hits bed 6B: Right leg motor drift ?> 0 = No drift for 5 seconds 7: Limb Ataxia ?> 0 = No ataxia 8: Sensation ?> 0 = Normal; no sensory loss 9: Language/aphasia ?> 0 = Normal; no aphasia 10: Dysarthria ?> 0 = Normal 11: Extinction/inattention ?> 0 = No abnormality Consultation: I spoke with Dr. Garcia who is on-call for neurology. He is evaluating the patient in the emergency room. The patient adamantly refuses admission for observation. He is out of the window for TNKase and also does not qualify for this. Dr. Ortiz he recommends home on aspirin and Lipitor and follow-up with him in clinic. EKG: Time 1612. Rate 83. Normal sinus rhythm, No ST-T changes, no ectopy, normal IN & QRS intervals, This was reviewed and interpreted by myself the ER physician at 1615 CT head: No acute intracranial process. no intracranial hemorrhage, no evidence of infarct. no evidence of acute fracture.This was reviewed and interpreted by myself the ER physician. Lab Review: Laboratory results were reviewed and interpreted by myself the emergency room physician. No leukocytosis. No anemia.Stable chronic renal insufficiency with a BUN/creatinine of 36 and 1.7. I reviewed the patient's medical record. Reexamination: Patient remained stable. Still some mild weakness in his left leg but no confusion no increased work of breathing. No facial droop. No altered mental status. Assessment and plan: Cerebrovascular accident Hypertension ?Home on Lipitor and aspirin full-strength. Follow-up with Dr. Garcia. Patient was offered admission but is insistent he goes home. - Discharged home - Discussed plan with patient. Answered any questions. - Evaluation and treatment of this problem were appropriate in the emergency setting. Lab Data 07/25/24 16:40 07/25/24 16:[address] 07/25/24 16:19 IMPRESSION: No acute intracranial abnormality. ASSESSMENT: ASPECTS ([place] Stroke Program Early CT Score) is 10. ADDENDUM: 07/25/24 1651 THIS REPORT CONTAINS FINDINGS THAT MAY BE CRITICAL TO PATIENT CARE. The findings and recommendations were personally verbally communicated via telephone conference with JANETTE COATS at 4:49 PM MAP COLORER on 07/25/2024. The findings were acknowledged and understood. Chest X-Ray 07/25/24 16:23 IMPRESSION: No acute findings. Laboratory Results WBC 6.26 10^3/uL (3.29-11.43) 07/25/24 16:40 RBC 3.78 10^6/uL (3.85-5.65) L 07/25/24 16:40 Hgb 11.50 g/dL (11.27-16.99) 07/25/24 16:40 Hct 35.0 % (37-53) L 07/25/24 16:40 MCV 92.6 fl (82-101) 07/25/24 16:40 MCH 30.4 pg (27-33) 07/25/24 16:40 MCHC 32.9 g/dL (30-55) 07/25/24 16:40 RDW 13.3 % (12.1-15.1) 07/25/24 16:40 Plt Count 233 10^3/cmm (157-399) 07/25/24 16:40 MPV 10.0 fL (7.4-10.4) 07/25/24 16:40 Neut % (Auto) 67.1 % 07/25/24 16:40 Lymph % (Auto) 19.6 % 07/25/24 16:40 [place] % (Auto) 10.4 % 07/25/24 16:40 Eos % (Auto) 1.6 % 07/25/24 16:40 Baso % (Auto) 0.3 % 07/25/24 16:40 Neut # (Auto) 4.20 10^3/uL (1.8-7.7) 07/25/24 16:40 Lymph # (Auto) 1.2 10^3/uL (0.8-4.8) 07/25/24 16:40 [place] # (Auto) 0.7 10^3/uL (0.2-0.9) 07/25/24 16:40 Eos # (Auto) 0.1 10^3/uL (0.0-0.8) 07/25/24 16:40 Baso # (Auto) 0.0 10^3/uL (0.0-0.1) 07/25/24 16:40 Nucleated RBC % (auto) 0 % 07/25/24 16:40 Nucleated RBCs # 0.0 /100WBC 07/25/24 16:40 PT 12.20 SECONDS (12.1-14.9) 07/25/24 16:40 INR 0.84 (0.8-1.2) 07/25/24 16:40 APTT 31.3 SECONDS (23.9-36.7) 07/25/24 16:40 Sodium 140 mmol/L (136-145) 07/25/24 16:40 Potassium 4.4 mmol/L (3.5-5.1) 07/25/24 16:40 Chloride 104 mmol/L (98-107) 07/25/24 16:40 Carbon Dioxide 27 mmol/L (22-29) 07/25/24 16:40 Anion Gap 13.4 (5-19) 07/25/24 16:40 BUN 36 mg/dL (8-23) H 07/25/24 16:40 Creatinine 1.7 mg/dL (0.7-1.2) H 07/25/24 16:40 GFR Calculation Not Reportable 07/25/24 16:40 Glucose 160 mg/dL (65-115) H 07/25/24 16:40 Calculated Osmolality 302 mOsm/kg (285-295) H 07/25/24 16:40 Calcium 8.8 mg/dL (8.5-10.5) 07/25/24 16:40 Total Bilirubin 0.2 mg/dL (0.15-1.2) 07/25/24 16:40 AST 13 U/L (0-40) 07/25/24 16:40 ALT 11 U/L (0-41) 07/25/24 16:40 Alkaline Phosphatase 98 U/L (40-130) 07/25/24 16:40 Total Protein 6.2 g/dL (6.6-8.7) L 07/25/24 16:40 Albumin 3.4 g/dL (3.5-5.2) L 07/25/24 16:40 Globulin 2.8 g/dL (1.3-4.6) 07/25/24 16:40 Urine Color Yellow (Yellow) 07/25/24 17:15 Urine Appearance Clear (CLEAR) 07/25/24 17:15 Urine pH 5.5 (5-7) 07/25/24 17:15 Ur Specific [place] 1.013 (1.005-1.030) 07/25/24 17:15 Urine Protein 3+ (Negative) A 07/25/24 17:15 Urine Glucose (UA) Negative (Normal) 07/25/24 17:15 Urine Ketones Negative (Negative) 07/25/24 17:15 Urine Blood Negative (Negative) 07/25/24 17:15 Urine Nitrate Negative (Negative) 07/25/24 17:15 Urine Bilirubin Negative (Negative) 07/25/24 17:15 Urine Urobilinogen 0.2 mg/dL (Negative) 07/25/24 17:15 Ur Leukocyte Esterase Negative (Negative) 07/25/24 17:15 Amorphous Sediment Not Reportable 07/25/24 17:15 All radiology interpretation(s) finalized by discharge Discharge Plan Discharge Patient Disposition: Home Clinical Impression: Cerebrovascular accident Condition: Stable Prescriptions: New atorvastatin [Lipitor] 20 mg tablet 20 mg PO DAILY Qty: 30 2RF aspirin 325 mg capsule 325 mg PO DAILY Qty: 30 2RF No Action alogliptin 12.5 mg tablet 12.5 mg PO DAILY cholecalciferol (vitamin D3) 50 mcg (2,000 unit) capsule 50 mcg PO DAILY tamsulosin 0.4 mg capsule 0.8 mg PO DAILY (DME) 3 Pairs of Compression Socks See Rx Instructions .Route .MEDSUPPLY Qty: 1 0RF Rx Instructions: As directed spironolactone 25 mg tablet 12.5 mg PO DAILY (DME) Medial lug breaker and wire puller brace See Rx Instructions .Route .MEDSUPPLY Qty: 1 0RF Rx Instructions: As directed furosemide 40 mg Tablet See Rx Instructions .ROUTE .COMPLEX Rx Instructions: TAKE 2 TABLETS IN THE MORNING AND 1 TABLES IN THE EVENING diltiazem HCl 240 mg Capsule,Extended Release 24hr 240 mg PO DAILY Novolog Mix 70-30 U-100 Insuln 100 unit/mL (70-30) Solution 12 unit SUBCUT BID Rx Instructions: TAKE IN THE MORNING AND IN THE EVENING. insulin glargine [Lantus U-100 Insulin] 100 unit/mL solution 50 unit SUBCUT DAILY Rx Instructions: USE IN THE EVENING Discharge Orders: Discharge ED (Routine); Ordered 07/25/24 Ordered By: Janette Coats Referrals: Josse Garcia MD [Physician] - 4-7 days (Please call for follow-up with the neurologist Dr. Garcia who saw you here in the emergency room.) Shweta Ohara MD [Primary Care Provider] - Discharge Diet: As Directed Discharge Activity: Increase activity as tolerated Patient Instructions: Stroke (DC), Opioid Safety, Pain Management Activity Restrictions/Additional Instructions: Thank you for choosing [facility] for your healthcare needs today. Please realize this is an emergency room and that we are providing you with a medical screening exam and this may not be complete and all inclusive of all the testing and or work up that you may need to determine your ailment or severity of your illness. You have been screened and evaluated and felt safe for discharge. Health conditions do change or evolve sometimes and as such it is important that you follow up with your Primary Doctor to be re checked, 3-5 days is a general good time frame for follow up. You are always welcome to return to the ED for re assessment if your symptoms are worsening or you have new concerns Print Language: Frisian Coding Level of Care Code ED Linecasting Machine Keyboard Operator for Susi Rosario
[2024-07-25 16:58] LABS: Basophils % 0.3 %; Eosinophils # 0.1 10^3/uL (0.0-0.8); Eosinophils % 1.6 %; Lymphocytes # 1.2 10^3/uL (0.8-4.8); Lymphocytes % 19.6 %; Mean Corpuscular HGB Conc 32.9 g/dL (30-55); Mean Corpuscular Hemoglobin 30.4 pg (27-33); Mean Corpuscular Volume 92.6 fl (82-101); Monocytes # 0.7 10^3/uL (0.2-0.9); Monocytes % 10.4 %; Neutrophils % 67.1 %; Nucleated Red Blood Cells % 0 %; Platelet Count 233 10^3/cmm (157-399); Red Blood Count 3.78 10^6/uL (3.85-5.65); Red Cell Distribution Width 13.3 % (12.1-15.1); White Blood Count 6.26 10^3/uL (3.29-11.43)
[2024-07-25 17:18] LABS: INR 0.84 (0.8-1.2)
[2024-07-25 17:19] LABS: Partial Thromboplastin Time 31.3 SECONDS (23.9-36.7)
[2024-07-25 17:23] LABS: Alanine Aminotransferase 11 U/L (0-41); Albumin Level 3.4 g/dL (3.5-5.2); Alkaline Phosphatase 98 U/L (40-130); Anion Gap 13.4 (5-19); Aspartate Amino Transferase 13 U/L (0-40); Blood Urea Nitrogen 36 mg/dL (8-23); Calcium 8.8 mg/dL (8.5-10.5); Carbon Dioxide 27 mmol/L (22-29); Chloride 104 mmol/L (98-107); Creatinine Clr Calc Pharmacy 38.2798; Globulin 2.8 g/dL (1.3-4.6); Glucose 160 mg/dL (65-115); Osmolality Calculated 302 mOsm/kg (285-295); Potassium 4.4 mmol/L (3.5-5.1); Sodium 140 mmol/L (136-145); Total Bilirubin 0.2 mg/dL (0.15-1.2); Total Protein 6.2 g/dL (6.6-8.7)
--- NOTE | 2024-07-25 17:23 | PM.CONSULT ---
Providers/Reason For Consult Consulting Physician/Specialty*: Josse Garcia MD neurology and epilepsy Reason for Consult*: Acute care/code stroke reported to emergency department room #14 Primary Care Provider: Shweta Ohara MD History of Present Illness History of Present Illness Jaime Monique is a 89 year old male with a history of congestive heart failure and borderline hypertension and right cerebral TIA episode of in in June 2024. According to the patient's son who was present at the patient's bedside in the emergency department room #14, the patient woke up this morning on July 25, 2024 and reported he did not feel like himself. Patient stated that around 1:30 PM he began to experience slurred speech, worsening blurred vision and left-sided weakness. The patient contacted his son at 3:30 PM on 07/25/2024. Patient was brought to [facility] emergency department. Code stroke was initiated at 4:20 PM on 07/25/2024. NIH score = 3 (secondary to left leg weakness = 1 (at approximately 3/5 strength) decreased pinprick left lower face and a V2 distribution =1, mild dysarthria =1) Serum glucose = [address] revealed no acute findings Drug allergies: None Current medications: Alogliptin 12.5 mg p.o. daily Lipitor 20 mg p.o. daily Vitamin D3 2000 international units p.o. daily Diltiazem 240 mg p.o. daily Lasix to use as instructed NovoLog insulin mixed units subcutaneously twice a day Insulin glargine 50 units subcutaneously daily Spironolactone 25 mg p.o. daily Flomax 0.8 mg p.o. daily Past medical history: Hypertension Congestive heart failure Type 2 diabetes mellitus, insulin requiring Vitamin D deficiency Macular degeneration with poor vision Habits: The patient reported that he smoked but quit 28 years ago. He admitted to occasional alcohol use in the past but quit years ago Family history: Remarkable for a maternal aunt who experienced a stroke Social history: The patient lives alone but has family members that check on him Review of Systems General: Reports: 10 or more systems reviewed and unremarkable except in HPI and below Neuro: Reports: numbness in extremities, weakness in extremities (Left leg), sensory changes and Slurred speech present Medications/Allergies Home Medications ?Medication ?Instructions ?Recorded ?Confirmed ?Last Taken ?Type diltiazem HCl 240 mg 240 mg PO DAILY 01/06/21 05/02/24 01/06/21 History capsule,extended release 24 hr furosemide 40 mg tablet See Rx Instructions .Route .COMPLEX 01/06/21 05/02/24 01/06/21 History insulin aspar prt-insulin aspart 12 unit SUBCUT BID 01/06/21 05/02/24 01/06/21 History 100 unit/mL (70-30) subcutaneous soln (Novolog Mix 70-30 U-100 Insuln) alogliptin 12.5 mg tablet 12.5 mg PO DAILY 12/04/21 05/02/24 Unknown History cholecalciferol (vitamin D3) 50 50 mcg PO DAILY 12/04/21 05/02/24 Unknown History mcg (2,000 unit) capsule insulin glargine 100 unit/mL 50 unit SUBCUT DAILY 12/04/21 05/02/24 Unknown History subcutaneous solution (Lantus U-100 Insulin) tamsulosin 0.4 mg capsule 0.8 mg PO DAILY 12/04/21 05/02/24 Unknown History 3 Pairs of Compression Socks #1 ea 04/27/22 05/02/24 Unknown Rx spironolactone 25 mg tablet 12.5 mg PO DAILY 11/03/22 05/02/24 Unknown History Medial flask handler brace #1 ea 05/02/24 05/02/24 Unknown Rx aspirin 325 mg capsule 325 mg PO DAILY #30 caps 07/25/24 Unknown Rx atorvastatin 20 mg tablet (Lipitor) 20 mg PO DAILY #30 tabs 07/25/24 Unknown Rx Allergies Allergy/AdvReac Type Severity Reaction Status Date / Time No Known Allergies Allergy Verified 07/25/24 16:11 PFSH Acute PFSH: Medical History Elevated PSA Hyperlipidemia Hypertension Diabetes Family History Father Tuberculosis Mother , AT AGE 90 Renal failure Other Hypertension Social History Smoking and tobacco/nicotine status: unknown if used tobacco/nicotine Alcohol intake: never Marital status: / Current occupational status: retired Vitals/I&O/Wt Last Vital Signs Temp 97.8 F 07/25/24 16:06 Pulse 89 07/25/24 16:06 Resp 17 07/25/24 16:06 BP 158/79 07/25/24 16:06 Pulse Ox 97 07/25/24 16:06 O2 Del Method Room Air 07/25/24 16:06 Weight last 48 hrs Weight 240 lb Physical Exam Narrative: NIH score = 3 (secondary to left leg weakness = 1 (at approximately 3/5 strength) decreased pinprick left lower face and a V2 distribution =1, mild dysarthria =1) Serum glucose = [address] revealed no acute findings The patient is alert and oriented to person place and situation. Head atraumatic. Neck supple. Cranial nerves II through XII intact except for decreased sensation to touch on the left face and a V2 distribution. Pupils 3 mm round reactive to light and accommodation. Extraocular movements intact. There are signs of cataract surgery bilaterally. Patient also reports history of macular degeneration with poor vision Motor testing 5/5 in the arms bilaterally and right leg and 3/5 strength in the left leg there was no drift. Deep tendon reflex revealed plantar responses bilaterally. Sensory examination intact to touch on his extremities. There was no obvious extinction on double sensory stimulation. Throat clear. Lungs clear. Heart regular rhythm and rate. Extremities were negative for cyanosis. Patient did have lower extremity edema bilaterally. Data 07/25/24 16:40 07/25/24 16:40 A&P Assessment and plan (1) Right hemisphere, cerebral infarction: Impression: 1. Right cerebral infarction, acute 07/25/2024 manifested as worsening blurred vision, left facial numbness, left arm and left leg numbness and left arm and left leg weakness and slurred speech at 1:30 PM on 07/25/2024. Patient's symptoms improved in the emergency department with NIH score = 3 (secondary to left leg weakness = 1 (at approximately 3/5 strength) decreased pinprick left lower face and a V2 distribution =1, mild dysarthria =1). Plan: 1. Recommended patient be admitted for observation to observe for any worsening of his stroke with the patient is refusing to be admitted. The patient's son is at the patient's bedside and agrees with the patient's decision. I informed the attending physician regarding the patient decision to not be admitted. The patient and the patient's son is aware of the potential health risks associated with not following my recommendations. 2. Since the patient is requesting to be discharged from the emergency department and is refusing hospitalization, recommend completing the patient's workup on an outpatient basis. Recommend the following: a. 2D echocardiogram to assess for embolic source for stroke b. Carotid duplex study to assess for carotid or vertebral artery stenosis c. Resume aspirin 325 mg p.o. every morning with food d. Increase Lipitor to 40 mg p.o. nightly per NIH stroke protocol unless there is contraindication e. Recommend patient follow-up with cardiology as soon as possible for history of congestive heart failure and recent TIA/stroke symptoms f. Recommend outpatient OT and PT and speech g. Fall precautions h. Outpatient follow-up with family physician for history of hypertension i. Stroke education/stroke pamphlet to be given to patient and patient's family PDMP PDMP Reviewed: Not Reviewed Consult Attestations Medical Necessity Statement: The patient was evaluated by neurology for acute care/code stroke emergency department room #14 Coding Level of Care Code 71384 Diagnoses Right hemisphere, cerebral infarction I63.9
[2024-07-25 17:38] LABS: Bilirubin Urine Negative (Negative); Blood Urine Negative (Negative); Glucose Urine UA Negative (Normal); Ketones Urine Negative (Negative); Leukocyte Esterase Urine Negative (Negative); Nitrate Urine Negative (Negative); Protein Urine 3+ (Negative); Specific Gravity, Urine 1.013 (1.005-1.030); Urine Appearance Clear (CLEAR); Urine Color Yellow (Yellow); Urobilinogen Urine 0.2 mg/dL (Negative); pH Urine 5.5 (5-7)
[2024-07-25 17:46] VITALS: BP 144/61; PULSE 74; O2SAT 98
[2024-07-25 17:48] VITALS: BP 144/67; PULSE 70; O2SAT 100
[2024-07-25 17:48] LABS: Bacteria Urine None Seen /hpf; Hyaline Casts Urine 15.28 /lpf; RBC Urine 0-2 /hpf (0-2); Squamous Epithelial Cell Urine 0-5 /hpf (0-5); WBC Urine 0-5 /hpf (0-5)
[2024-07-25 17:58] LABS: Covid PCR NEGATIVE (Negative); Influenza A NEGATIVE (Negative); Influenza B NEGATIVE (Negative); Respiratory Syncytial Virus Ce NEGATIVE (Negative)
[2024-07-25 18:07] LABS: Fine Granular Casts Urine 0-4 /lpf; UA Slide Review UA Slide Review Perf
== END 2024-07-25 18:03 | disposition home or self-care (01) ==
PROVIDERS: Emergency Provider Emergency Medicine; PCP Family Medicine
DX: I63.9 Cerebral infarction, unspecified (principal); Z79.82 Long term (current) use of aspirin; Z79.4 Long term (current) use of insulin; E78.5 Hyperlipidemia, unspecified; I10 Essential (primary) hypertension; E11.9 Type 2 diabetes mellitus without complications
CPT/HCPCS: 70450; 71045; 80053; 81001; 85025; 85610; 85730; 87637; 93005; 99285

== ENCOUNTER → 2025-04-25 13:05 | Outpatient (BNVA) | payer OTHER, SELFPAY | PROVIDERS: PCP Family Medicine; Visit Provider Thoracic Surgery (Cardiothoracic Vascular Surgery) | DX: E11.52 Type 2 diabetes mellitus with diabetic peripheral angiopathy with gangrene (principal); E11.622 Type 2 diabetes mellitus with other skin ulcer; L97.812 Non-pressure chronic ulcer of other part of right lower leg with fat layer exposed; I87.2 Venous insufficiency (chronic) (peripheral) | CPT/HCPCS: 11042; 99213; A6252 ==

== ENCOUNTER 2025-04-26 13:36 | Outpatient (CLI) | payer OTHER, SELFPAY ==
--- NOTE | 2025-04-26 13:45 | USR_ITS ---
PROCEDURE INFORMATION: Exam: US Duplex Bilateral Lower Extremity Arteries Exam date and time: 04/26/2025 2:22 PM Age: 89 years old Clinical indication: Other: Ankle ulcerations; Additional info: Wound to rle, please call son linda [phone] to schedule. TECHNIQUE: Imaging protocol: Real-time ultrasound scan of the arteries of the bilateral lower extremities with 2-D dominguez scale, color Doppler flow and spectral waveform analysis. Images documented and saved. COMPARISON: US CV ankle brachial index [id number] 03/27/2024 1:51 PM FINDINGS: Right external iliac artery: Right external iliac: 143 cm/s, triphasic Right common femoral artery: Right COTTON JAMMER: 148 cm/s, triphasic Right superficial femoral artery: Right SFA proximal: 43 cm/s, biphasic. Right SFA mid: 22 cm/s, monophasic. Right SFA distal: 60 cm/s, monophasic Right popliteal artery: Right popliteal: 66 cm/s, monophasic Right calf/foot arteries: Right posterior tibial: Could not obtained due to bandaging. Right dorsalis pedis: Could not obtained due to bandaging. Left external iliac artery: Left external iliac: 187 cm/s, biphasic Left common femoral artery: Left COTTON JAMMER: 166 cm/s, biphasic Left superficial femoral artery: Left SFA proximal: 56 cm/s, monophasic. Left SFA mid: 25 cm/s, monophasic. Left SFA distal: 31 cm/s, monophasic Left popliteal artery: Left popliteal: 85 cm/s, monophasic Left calf/foot arteries: Left FISCAL MANAGER: 62 cm/s, monophasic. Left dorsalis pedis: 8 cm/s, monophasic Other arteries: Marked atherosclerotic plaque is noted throughout the lower extremity arteries bilaterally. Possible collateral flow sourcing the arteries bilaterally from the mid SFA distally. Other findings: Ankle-brachial indices could not be obtained due to ankle ulcerations. US/[place] [id number] IMPRESSION: Marked bilateral velocity reduction and waveform dampening bilaterally, beginning in the proximal superficial femoral arteries. 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 Focal stenotic region was not otherwise demonstrated, but could be further assessed with CT angiography.
== END 2025-04-26 13:37 | disposition home or self-care (01) ==
LOC: RAD 13:37
PROVIDERS: PCP Family Medicine; Visit Provider Nurse Practitioner Family
DX: L97.212 Non-pressure chronic ulcer of right calf with fat layer exposed (principal); L97.912 Non-pressure chronic ulcer of unspecified part of right lower leg with fat layer exposed; I70.203 Unspecified atherosclerosis of native arteries of extremities, bilateral legs
CPT/HCPCS: 93925

== ENCOUNTER → 2025-05-02 09:33 | Outpatient (BNVA) | payer OTHER, SELFPAY | PROVIDERS: PCP Family Medicine; Visit Provider Thoracic Surgery (Cardiothoracic Vascular Surgery) | DX: E11.52 Type 2 diabetes mellitus with diabetic peripheral angiopathy with gangrene (principal); E11.622 Type 2 diabetes mellitus with other skin ulcer; L97.811 Non-pressure chronic ulcer of other part of right lower leg limited to breakdown of skin | CPT/HCPCS: 97597; A6252 ==

== ENCOUNTER → 2025-05-06 09:50 | Outpatient (BNVA) | payer OTHER, SELFPAY | PROVIDERS: PCP Family Medicine; Referring Provider Thoracic Surgery (Cardiothoracic Vascular Surgery); Visit Provider Internal Medicine Cardiovascular Disease | DX: I13.0 Hypertensive heart and chronic kidney disease with heart failure and stage 1 through stage 4 chronic kidney disease, or unspecified chronic kidney disease (principal); E11.22 Type 2 diabetes mellitus with diabetic chronic kidney disease; N18.9 Chronic kidney disease, unspecified; I50.32 Chronic diastolic (congestive) heart failure; Z79.4 Long term (current) use of insulin; E78.5 Hyperlipidemia, unspecified; I73.9 Peripheral vascular disease, unspecified; I65.23 Occlusion and stenosis of bilateral carotid arteries; R94.39 Abnormal result of other cardiovascular function study; Z87.891 Personal history of nicotine dependence; R07.9 Chest pain, unspecified; I50.9 Heart failure, unspecified; R58 Hemorrhage, not elsewhere classified | CPT/HCPCS: 36415; 80048; 85025; 85610; 93005; 99204 ==

== ENCOUNTER → 2025-05-09 09:30 | Outpatient (BNVA) | payer OTHER, SELFPAY | PROVIDERS: PCP Family Medicine; Visit Provider Thoracic Surgery (Cardiothoracic Vascular Surgery) | DX: E11.52 Type 2 diabetes mellitus with diabetic peripheral angiopathy with gangrene (principal); E11.622 Type 2 diabetes mellitus with other skin ulcer; L97.811 Non-pressure chronic ulcer of other part of right lower leg limited to breakdown of skin | CPT/HCPCS: 97597; A6252 ==

== ENCOUNTER → 2025-05-23 09:44 | Outpatient (BNVA) | payer OTHER, SELFPAY | PROVIDERS: PCP Family Medicine; Visit Provider Thoracic Surgery (Cardiothoracic Vascular Surgery) | DX: E11.52 Type 2 diabetes mellitus with diabetic peripheral angiopathy with gangrene (principal); E11.622 Type 2 diabetes mellitus with other skin ulcer; L97.811 Non-pressure chronic ulcer of other part of right lower leg limited to breakdown of skin | CPT/HCPCS: 97597; A6021; A6212; A6248; A6252 ==

== ENCOUNTER → 2025-05-30 09:00 | Outpatient (BNVA) | payer OTHER, SELFPAY | PROVIDERS: PCP Family Medicine; Visit Provider Thoracic Surgery (Cardiothoracic Vascular Surgery) | DX: E11.52 Type 2 diabetes mellitus with diabetic peripheral angiopathy with gangrene (principal); E11.622 Type 2 diabetes mellitus with other skin ulcer; L97.811 Non-pressure chronic ulcer of other part of right lower leg limited to breakdown of skin | CPT/HCPCS: 97597 ==